=== PATIENT | female | born 1935 | race Caucasian/White ===

== ENCOUNTER → 2019-06-11 | Outpatient (CLI) | payer MEDICARE ==
--- NOTE | 2019-06-11 12:38 | MR ---
EXAMINATION TYPE: MR brain and iac wo/w con DATE OF EXAM: 06/11/2019 COMPARISON: None HISTORY: Asymmetrical Hearing Loss / Tinnitus TECHNIQUE: Multiplanar, multisequence images of the brain and brainstem is performed without and with IV contras t, utilizing 5.5 mL intravenous Gadavist . FINDINGS: Diffusion weighted images demonstrate no evidence of a recent infarct or other diffusion ab normality. The ventricular system and cisternal spaces are normal in size and appearance. The brain volume is age appropriate. Midline structures demonstrate normal morphology. The craniocervical junction appears within normal limits. Post contrast images demonstrate no abnormal enhancement. The dural venous sinuses appear pa tent. Changes of chronic sinusitis are noted. No abnormal signal the visualized mastoid air cells. There is mild to moderate generalized degenerative change and there are numerous bilateral focal area s of abnormal signal as well as confluent areas of abnormal signal within the white matter in the per iventricular region. Findings are nonspecific but most typical of remote microvascular ischemia. No cerebellopontine angle mass. No acoustic schwannoma. IMPRESSION: 1. No diagnostic evidence of cerebellopontine angle mass. 2. Degenerative and diffuse nonspecific white matter changes most typical remote microvascular ischem ia.
== END | disposition home or self-care (01) ==
LOC: RADMRIMAIN 09:31
PROVIDERS: ATTEND Otolaryngology Otolaryngic Allergy
DX: R90.89 Other abnormal findings on diagnostic imaging of central nervous system (principal); H91.8X2 Other specified hearing loss, left ear
CPT/HCPCS: 70553; A9585